=== PATIENT | female | born 1985 | race Caucasian/White ===

== ENCOUNTER 2017-02-22 04:04 | Emergency (ER) | payer OTHER ==
[~2017-02-22] VITALS: Ht 154.9 cm; Wt 83.0 kg
[2017-02-22 04:13] VITALS: BP 111/70; PULSE 73; RESP 18; TEMP 97.9; O2SAT 94
[2017-02-22] MEDS ORDERED: SUBO2MIS SL (04:27)
[2017-02-22] MEDS ORDERED: LISI2.5T3 PO (04:27)
[2017-02-22] MEDS ORDERED: CLON1 PO (04:27)
--- NOTE | 2017-02-22 04:40 | PD ---
HPI Chief Complaint: Psychiatric Symptoms Time Seen by Provider: 04:33 Travel History International Travel<30 days: No Contact w/Intl Traveler<30days: No Traveled to known affect area: No History of Present Illness HPI 31-year-old white female presents to emergency department under Chowdhury act for psychological evaluation and treatment. The patient states that she just got here today from [place] with her boyfriend and other family members. She has a history of depression, anxiety and substance abuse. She takes Suboxone, Klonopin lisinopril and another psychotropic meds the patient cannot recall. The patient states that she had an argument with her boyfriend this evening. There is allegations that she made suicidal statements. She allegedly was going to hang herself with the shower curtain. She denies any toxic ingestions. She denies alcohol and tobacco. She alleges that she has not taken her evening dose of Suboxone. She denies any current substance abuse.. PFSH Past Medical History Narrative Medical Anxiety, depression, hypertension, GERD, substance abuse, pseudotumor cerebri with vision loss Anxiety: Yes Depression: Yes Diminished Hearing: No Hypertension: Yes Medical other: Yes (psudo cerbral tumor) Tetanus Vaccination: < 5 Years Influenza Vaccination: No ?: Not LMP: 02/18/2017 Past Surgical History Eye Surgery: Yes (optic nerve b/l eyes) Social History Alcohol Use: No Tobacco Use: No Substance Use: Yes (history of) Allergies-Medications (Allergen,Severity, Reaction): Coded Allergies: No Known Allergies (Unverified , 02/22/17) Reported Meds & Prescriptions Reported Meds & Active Scripts Active Reported Klonopin (Clonazepam) 1 Mg Tab 1 Mg PO BID Suboxone Sublingual Film (Buprenorphine-Naloxone Sublingual Film) 2-0.5 Mg Film 1 Film SL Unique ID number required: Lisinopril 2.5 Mg Tab 1 Tab PO DAILY Review of Systems Except as stated in HPI: all other systems reviewed are Neg Psychiatric: Positive: Anxiety, Depression, No: Suicidal Ideations, Disorder of Thought, Mood Disorder, Substance Abuse, Homicidal Ideation Physical Exam Narrative GENERAL: Well-nourished, well-developed patient. The patient is very somnolent. Her speech is very slurred and appears under the influence of medication. SKIN: Warm and dry. Old scars from cutting. HEAD: Normocephalic and atraumatic. EYES: No scleral icterus. No injection or drainage. ENT: No nasal drainage noted. Mucous membranes pink. Airway patent. NECK: Supple, trachea midline. Moves head freely without obvious discomfort. CARDIOVASCULAR: Regular rate and rhythm without murmurs, gallops, or rubs. RESPIRATORY: Breath sounds equal bilaterally. No accessory muscle use. GASTROINTESTINAL: Abdomen soft, non-tender, nondistended. EXTREMITIES: No cyanosis or edema. BACK: Nontender without obvious deformity. No CVA tenderness. NEURO: Patient is alert and oriented. no sensorimotor deficits. Nonfocal. Slurred speech. PSYCH: No delusions. No auditory or visual hallucinations. Data Data Last Documented VS Vital Signs Date Time Temp Pulse Resp B/P Pulse Ox O2 Delivery O2 Flow Rate FiO2 02/22/17 04:13 97.9 73 18 111/70 94 Orders Complete Blood Count With Diff (02/22/17 04:30) Comprehensive Metabolic Panel (02/22/17 04:30) Ed Urine Pregnancytest Poc (02/22/17 04:30) Psych Screen (02/22/17 04:30) Drug Screen, Random Urine (02/22/17 04:30) Alcohol (Ethanol) (02/22/17 04:30) Salicylates (Aspirin) (02/22/17 04:30) Tylenol (Acetaminophen) (02/22/17 04:30) MDM Medical Decision Making Medical Screen Exam Complete: Yes Emergency Medical Condition: Yes Medical Record Reviewed: Yes Differential Diagnosis MDM: High Differential diagnoses: Schizophrenia, schizoaffective disorder, bipolar, anxiety, depression, adjustment reaction, mood disorder NOS, ODD, depressive disorder NOS, dementia, dementia with agitation, psychosis NOS, substance induced mood disorder, intermittent explosive disorder, Asperger syndrome, infection,electrolyte abnormality, malingering. Narrative Course Mental health screening discussed with the patient. Psychiatric screen ordered. Condition: Stable Josemanuel Pedro February 22, 2017 04:40
[2017-02-22 05:00] LABS: AUTOMATED NEUTROPHIL # 4.6 TH/MM3 (1.8-7.7); BASOPHIL # 0.1 TH/MM3 (0-0.2); BASOPHIL % 0.8 % (0.0-2.0); EOSINOPHIL % 0.5 % (0.0-4.0); HEMATOCRIT 39.5 % (35.0-46.0); HEMO FLAGS DIFF FINAL; LYMPH % 35.4 % (9.0-44.0); MEAN CELL VOLUME 85.9 FL (80.0-100.0); MEAN CORPUSCULAR HEMOGLOBIN 29.1 PG (27.0-34.0); MEAN CORPUSCULAR HGB CONC 33.9 % (32.0-36.0); MONO % 8.8 % (0.0-8.0); NEUT % 54.5 % (16.0-70.0); PLATELET COUNT 245 TH/MM3 (150-450); RED CELL DISTRIBUTION WIDTH 14.1 % (11.6-17.2); WHITE BLOOD COUNT 8.5 TH/MM3 (4.0-11.0)
[2017-02-22 05:31] LABS: ANION GAP 14 MEQ/L (5-15)
[2017-02-22 05:35] LABS: ALKALINE PHOSPHATASE 103 U/L (45-117); ALT (GPT) 47 U/L (10-53); AST (GOT) 40 U/L (15-37); BICARBONATE 21.4 MEQ/L (21.0-32.0); BLOOD UREA NITROGEN 13 MG/DL (7-18); CHLORIDE 104 MEQ/L (98-107); GLOMERULAR FILTRATION RATE 58 ML/MIN (>89); POTASSIUM 3.1 MEQ/L (3.5-5.1); SODIUM (NA) 139 MEQ/L (136-145); TOTAL BILIRUBIN ADULT 0.5 MG/DL (0.2-1.0)
[2017-02-22 05:36] LABS: ACETAMINOPHEN LESS THAN 2.0 MCG/ML (10.0-30.0)
[2017-02-22 05:42] VITALS: BP 106/65; PULSE 77; RESP 18; O2SAT 94
[2017-02-22] MEDS ORDERED: ADDE20XR PO (05:50)
[2017-02-22] MEDS ORDERED: SUBO8MIS SL (05:50)
[2017-02-22] MEDS ORDERED: LISI10TA3 PO (05:50)
[2017-02-22] MEDS ORDERED: PANT40TA3 PO (05:50)
[2017-02-22] MEDS ORDERED: CLON1TAB PO (05:50)
[2017-02-22] MEDS ORDERED: METO10TA PO (05:50)
[2017-02-22] MEDS ORDERED: ERGO1CAP10 PO (05:50)
[2017-02-22] MEDS ORDERED: GABA600T PO (05:50)
[2017-02-22] MEDS ORDERED: LINA145C PO (05:50)
[2017-02-22] MEDS ORDERED: TRIA1TAB5 PO (05:50)
[2017-02-22] MEDS ORDERED: POTASSIUM CHLORIDE 20 MEQ CONTROLLED RELEASE TAB PO ONE (06:30)
[2017-02-22 06:37] VITALS: BP 125/64; PULSE 80; RESP 18; O2SAT 92
[2017-02-22 07:15] LABS: AMPHETAMINE, URINE NEG (NEG); BARBITURATES, URINE NEG (NEG); COCAINE, URINE NEG (NEG)
--- NOTE | 2017-02-22 09:43 | PD ---
History of Present Illness Chief Complaint: Psychiatric Symptoms Time Seen by Provider: 09:30 Travel History International Travel<30 Days: No Contact w/Intl Traveler<30days: No Known affected area: No Legal Status Legal Status: Chowdhury Act Chow[place]ury Act Signed By: Morteza Tejeda History of Present Illness: History of Present Illness HPI 31-year-old white female with reported hx of depression, anxiety as well as substance use disorder who presents to emergency department under Chowdhury act initiated by YULIET. As per that report the patient's boyfriend called the police because the patient was telling him that she wanted to and that she attempted to hang herself with the shower curtain. It also alleges that she informed the police she wanted to . The patient has been monitored in ED and has presented no behavioral concerns and no suicidality. She is from [place] so [place] [facility] Current toxicology is negative for all substances although patient reports taking Klonopin on a regular basis. Patient is sleepy but arouses with verbal que. Oriented. Speech remains slurred as if she was under the influence or has taken medication. She is able to answer questions appropriately and is asking for the Suboxone that she takes. There is no psychosis and no ean. The patient states that she just got here today from [place] with her boyfriend and other family members. The patient states that she had an argument with her boyfriend this evening and went into the bathroom to take her medication. She reports that her boyfriend walked into the bathroom and " yanked on the shower curtain while we were arguing". The patient denies that she made any attempts at harming herself. She is currently denying any suicidal or homicidal ideation, intent or plan. there is no ,ean and no psychosis. She is requesting discharge at this time as she wants to get back home to [place]. I have attempted to contact her boyfriend but nuber provided on BA is an incorrect number. PFSH Past Medical History Anxiety: Yes Depression: Yes Diminished Hearing: No Hypertension: Yes Medical other: Yes (psudo cerbral tumor) Tetanus Vaccination: < 5 Years Influenza Vaccination: No ?: Not LMP: 02/18/2017 Past Surgical History Eye Surgery: Yes (optic nerve b/l eyes) Psychiatric History Psychiatric History Hx Psychiatric Treatment: Reports previous attempot at hurting self by cutting self Currently in tx. Bipolar Disorder and anxiety History of Inpatient Treatment: Yes (Last hosp over 4 years ago. ) Social History Single. Lives in [place] with her parents. Here on vacation. On disability Hx Alcohol Use: No Hx Tobacco Use: No Hx Substance Use: Yes (history of) Substance Use Type: Heroin (Clean x 4 years) Hx of Substance Use Treatment: Yes Family Psychiatric History Negative Allergies-Medications (Allergen,Severity, Reaction): Coded Allergies: No Known Allergies (Unverified , 02/22/17) Reported Meds & Prescriptions Reported Meds & Active Scripts Active Reported Adderall Xr 24 HR (Amphetamine/Dextroamphetamine) 20 Mg Cap 20 Mg PO DAILY Once daily in the morning. Vitamin D (Ergocalciferol) 50,000 Unit Cap 50,000 Units PO Q7D Triamterene-Hydrochlorothiazide 75-50 Mg Tab 1 Tab PO DAILY Gabapentin 600 Mg Tab 600 Mg PO TID Metoclopramide (Metoclopramide HCl) 10 Mg Tab 10 Mg PO TIDAC Pantoprazole (Pantoprazole Sodium) 40 Mg Tab 40 Mg PO DAILY Linzess (Linaclotide) 145 Mcg Cap 145 Mcg PO DAILY Suboxone Sublingual Film (Buprenorphine-Naloxone Sublingual Film) 8-2 Mg Film 1.5 Film SL DAILY Unique ID number required: Lisinopril 10 Mg Tab 10 Mg PO DAILY Clonazepam 1 Mg Tab 1 Mg PO BID Exam Alert: Yes [place]: Person (ox4) Mood: Calm Affect: Appropriate Speech: Clear, Slurred Eye Contact: Indirect Memory Intact: Comment (not impaired) Hallucinations: Other (negative) Delusions: No Suicidal: Ideation (deneis any) Homicidal: Ideation (deneis any) Insight/Judgement Fair. not impaired. MDM Medical Decision Making Medical Record Reviewed: Yes Assessment/Plan 31 year old female. under a BA. She reports that in context of an argument with her boyfriend he contacted the police and reported she was suicidal. At this time she is denying any suicidal or homicidal ideation. she has not presented any concerning behaviors here in ED. Does not meet criteria at this time Cleared from psychiatry for discharge. Patient is requesting assistance to get back to [place]. ED charge nurse Karen hernandez. Orders Complete Blood Count With Diff (02/22/17 04:30) Comprehensive Metabolic Panel (02/22/17 04:30) Ed Urine Pregnancytest Poc (02/22/17 04:30) Psych Screen (02/22/17 04:30) Drug Screen, Random Urine (02/22/17 04:30) Alcohol (Ethanol) (02/22/17 04:30) Salicylates (Aspirin) (02/22/17 04:30) Tylenol (Acetaminophen) (02/22/17 04:30) Potassium Chloride (Kcl) (02/22/17 06:30) Diet Regular Basic (02/22/17 Breakfast) Results Vital Signs Date Time Temp Pulse Resp B/P Pulse Ox O2 Delivery O2 Flow Rate FiO2 02/22/17 06:37 80 18 125/64 92 Nasal Cannula 3 02/22/17 05:42 77 18 106/65 94 Nasal Cannula 2 02/22/17 04:13 97.9 73 18 111/70 94 Laboratory Tests Test 02/22/17 02/22/17 04:45 06:30 White Blood Count 8.5 Red Blood Count 4.60 Hemoglobin 13.4 Hematocrit 39.5 Mean Corpuscular Volume 85.9 Mean Corpuscular Hemoglobin 29.1 Mean Corpuscular Hemoglobin 33.9 Concent Red Cell Distribution Width 14.1 Platelet Count 245 Mean Platelet Volume 10.5 Neutrophils (%) (Auto) 54.5 Lymphocytes (%) (Auto) 35.4 Monocytes (%) (Auto) 8.8 Eosinophils (%) (Auto) 0.5 Basophils (%) (Auto) 0.8 Neutrophils # (Auto) 4.6 Lymphocytes # (Auto) 3.0 Monocytes # (Auto) 0.7 Eosinophils # (Auto) 0.0 Basophils # (Auto) 0.1 CBC Comment DIFF FINAL Differential Comment Sodium Level 139 Potassium Level 3.1 Chloride Level 104 Carbon Dioxide Level 21.4 Anion Gap 14 Blood Urea Nitrogen 13 Creatinine 1.09 Estimat Glomerular Filtration 58 Rate Random Glucose 117 Calcium Level 9.9 Total Bilirubin 0.5 Aspartate Amino Transf 40 (AST/SGOT) Alanine Aminotransferase 47 (ALT/SGPT) Alkaline Phosphatase 103 Total Protein 7.9 Albumin 4.4 Salicylates Level LESS THAN 1.7 Acetaminophen Level LESS THAN 2.0 Ethyl Alcohol Level LESS THAN 3 Urine Opiates Screen NEG Urine Barbiturates Screen NEG Urine Amphetamines Screen NEG Urine Benzodiazepines Screen NEG Urine Cocaine Screen NEG Urine Cannabinoids Screen NEG Diagnosis Primary Impression: Adjustment disorder Additional Impression: Substance abuse Psychiatrically Cleared: Yes Med/ Other Pt Specific Info: No Change to Meds Disposition: 01 DISCHARGE HOME Condition: Stable Problem Qualifiers Primary Impression: Adjustment disorder Qualified Code: F43.23 - Adjustment disorder with mixed anxiety and depressed mood Flakita Lewis February 22, 2017 09:43
[2017-02-22 11:43] VITALS: BP 110/70
== END 2017-02-22 11:55 | disposition home or self-care (01) ==
LOC: NEPD 04:04
DX: F43.20 Adjustment disorder, unspecified (principal); K21.9 Gastro-esophageal reflux disease without esophagitis; I10 Essential (primary) hypertension; G93.2 Benign intracranial hypertension
CPT/HCPCS: 80053; 80307; 84703; 85025